=== PATIENT | female | born 1945 | race Caucasian/White ===

== ENCOUNTER → 2017-07-23 10:30 | Outpatient (CLI) | payer MEDICARE, SELFPAY ==
[2017-07-23 11:16] LABS: Basophils Percent Auto 0.6 % (0-2); Eosinophils Percent Auto 2.4 % (2-4); Lymphocytes Percent Auto 15.7 % (25-40); Mean Corpuscular HGB Conc 31.8 % (30-36); Mean Corpuscular Hemoglobin 22.7 PG (26-34); Mean Corpuscular Volume 71.4 fL (80-100); Monocytes Percent Auto 6.2 % (3-14); Neutrophils Absolute Auto 5100 /uL (3000-5900); Neutrophils Percent Auto 75.1 % (50-75); Platelet Count 527 X10^3/uL (150-400); Red Blood Cell Count 6.17 X10^6/uL (4.0-5.2); Red Cell Distribution Width 18.6 % (11.6-14.8); White Blood Cell Count 6.8 X10^3/uL (4.5-11.0)
[2017-07-23 11:17] LABS: Add Manual Diff / Slide Review SLIDE REVIEW
[2017-07-23 11:47] LABS: Anisocytosis 1+
--- NOTE | 2017-07-23 15:53 | PC.NURSE ---
Addendum entered by Linda Perkins R.N. 07/24/17 08:15: Labs reviewed by PAOLA.No changes to continue twice weekly Hydrea 500 mg twice weekly.CBC in 2 weeks .Pt notified Original Note: Patient's Hct 44.0 today, PLT 527K. No phlebotomy needed. Results given to Meli GUEVARA for eval and possible Hydrea adjustment.
== END ==
PROVIDERS: PCP Internal Medicine; Visit Provider Nurse Practitioner Gerontology
DX: D47.3 Essential (hemorrhagic) thrombocythemia (principal)
CPT/HCPCS: 36415; 85025

== ENCOUNTER → 2017-08-04 10:59 | Outpatient (CLI) | payer MEDICARE, SELFPAY ==
[2017-08-04 11:25] LABS: Add Manual Diff / Slide Review NO; Basophils Percent Auto 0.7 % (0-2); Eosinophils Percent Auto 2.7 % (2-4); Hematocrit 45.9 % (36-46); Hemoglobin 14.7 g/dL (12.0-16.0); Lymphocytes Percent Auto 14.7 % (25-40); Mean Corpuscular Hemoglobin 22.6 PG (26-34); Mean Corpuscular Volume 70.6 fL (80-100); Monocytes Percent Auto 10.2 % (3-14); Neutrophils Absolute Auto 4800 /uL (3000-5900); Neutrophils Percent Auto 71.7 % (50-75); Platelet Count 477 X10^3/uL (150-400); Red Blood Cell Count 6.49 X10^6/uL (4.0-5.2); Red Cell Distribution Width 18.3 % (11.6-14.8); White Blood Cell Count 6.7 X10^3/uL (4.5-11.0)
== END ==
PROVIDERS: PCP Internal Medicine; Visit Provider Nurse Practitioner Gerontology
DX: D47.3 Essential (hemorrhagic) thrombocythemia (principal)
CPT/HCPCS: 36415; 85025

== ENCOUNTER → 2017-09-18 13:02 | Outpatient (CLI) | payer MEDICARE, SELFPAY ==
[2017-09-18 13:22] LABS: Hematocrit 48.7 % (36-46); Hemoglobin 15.5 g/dL (12.0-16.0); Mean Corpuscular HGB Conc 31.9 % (30-36); Mean Corpuscular Hemoglobin 23.5 PG (26-34); Mean Corpuscular Volume 73.5 fL (80-100); Platelet Count 546 X10^3/uL (150-400); Red Cell Distribution Width 19.2 % (11.6-14.8); White Blood Cell Count 8.6 X10^3/uL (4.5-11.0)
[2017-09-18 13:25] LABS: Red Blood Cell Count 6.63 X10^6/uL (4.0-5.2)
[2017-09-18 13:43] LABS: Neutrophils Absolute Manual 6966 /uL (3000-5900); Total Cells Counted 100
[2017-09-18 13:44] LABS: Ovalocytes 1+
[2017-09-18 13:45] LABS: Anisocytosis 1+; Microcytosis 1+
--- NOTE | 2017-09-18 15:21 | PC.NURSE ---
PT BECAME VERY UPSET WHEN TOLD SHE WOULD NEED TO GO FOR A THERAPEUTIC PHLEBOTOMY FOR A CRIT OF 48.7 SHE REQUIRED A LOT OF CONSOLING AND DID NOT WANT TO SCHD ONE UNTIL SHE NEW WHAT HER HUSBANDS SCHD WOULD BE. FINALLY AFTER SEVERAL CALLS HER IT WAS DETERMINED HER WAS AVAIL FOR FRIDAY (09/19) AND THE PROCEDURE WAS SCHD FOR 10AM. PT NOTIFIED VIA PHONE
== END ==
PROVIDERS: PCP Internal Medicine; Visit Provider Nurse Practitioner Gerontology
DX: D47.3 Essential (hemorrhagic) thrombocythemia (principal)
CPT/HCPCS: 36415; 85025

== ENCOUNTER → 2017-09-19 09:47 | Outpatient (CLI) | payer MEDICARE, SELFPAY ==
[2017-09-19 12:25] LABS: 585 Gram Check PASS; Amount Collected in g 585; Dizziness NO; Postdiastolic BP 89; Postsystolic BP 149; Prediastolic 89; Presystolic 155; Pulse 72; Site of phlebotomy R AC; Swelling NO; Therapeutic Phleb Comment NO COMMENT; Zero Check Sebra Scale PASS
== END ==
PROVIDERS: PCP Internal Medicine; Visit Provider Nurse Practitioner Gerontology
DX: D47.3 Essential (hemorrhagic) thrombocythemia (principal)
CPT/HCPCS: 99195

== ENCOUNTER → 2017-10-16 10:53 | Outpatient (CLI) | payer MEDICARE, SELFPAY ==
[2017-10-16 11:14] LABS: Basophils Percent Auto 0.3 % (0-2); Eosinophils Percent Auto 2.4 % (2-4); Hematocrit 43.5 % (36-46); Hemoglobin 14.3 g/dL (12.0-16.0); Lymphocytes Percent Auto 17.6 % (25-40); Mean Corpuscular HGB Conc 32.8 % (30-36); Mean Corpuscular Hemoglobin 24.2 PG (26-34); Monocytes Percent Auto 7.1 % (3-14); Neutrophils Absolute Auto 4300 /uL (3000-5900); Neutrophils Percent Auto 72.6 % (50-75); Platelet Count 494 X10^3/uL (150-400); Red Blood Cell Count 5.88 X10^6/uL (4.0-5.2); Red Cell Distribution Width 18.1 % (11.6-14.8)
[2017-10-16 11:15] LABS: Add Manual Diff / Slide Review SLIDE REVIEW
[2017-10-16 12:24] LABS: Anisocytosis 1+; Ovalocytes 1+
[2017-10-16 12:25] LABS: Microcytosis 1+
--- NOTE | 2018-01-19 14:36 | ONC.NAV ---
Description: Transfer Referral Order Activity: Faxed pt's referral to her new Oncology provider, per her request.
== END ==
PROVIDERS: PCP Internal Medicine; Visit Provider Nurse Practitioner Gerontology
DX: D47.3 Essential (hemorrhagic) thrombocythemia (principal)
CPT/HCPCS: 36415; 85025

== ENCOUNTER → 2017-11-13 12:28 | Outpatient (CLI) | payer MEDICARE, SELFPAY ==
[2017-11-13 13:00] LABS: Add Manual Diff / Slide Review NO; Basophils Percent Auto 0.5 % (0-2); Eosinophils Percent Auto 2.2 % (2-4); Hematocrit 42.8 % (36-46); Hemoglobin 13.8 g/dL (12.0-16.0); Lymphocytes Percent Auto 16.5 % (25-40); Mean Corpuscular HGB Conc 32.2 % (30-36); Mean Corpuscular Hemoglobin 23.4 PG (26-34); Mean Corpuscular Volume 72.8 fL (80-100); Monocytes Percent Auto 7.8 % (3-14); Neutrophils Absolute Auto 5200 /uL (3000-5900); Platelet Count 514 X10^3/uL (150-400); Red Blood Cell Count 5.88 X10^6/uL (4.0-5.2); Red Cell Distribution Width 17.2 % (11.6-14.8); White Blood Cell Count 7.1 X10^3/uL (4.5-11.0)
== END ==
PROVIDERS: PCP Internal Medicine; Visit Provider Nurse Practitioner Gerontology
DX: D47.3 Essential (hemorrhagic) thrombocythemia (principal)
CPT/HCPCS: 36415; 85025

== ENCOUNTER → 2017-12-04 12:07 | Outpatient (CLI) | payer MEDICARE, SELFPAY ==
[2017-12-04 12:48] LABS: Add Manual Diff / Slide Review NO; Alanine Aminotransferase 24 IU/L (9-52); Albumin 4.2 g/dL (3.5-5.0); Albumin Globulin Ratio 1.3 (1.0-2.8); Alkaline Phosphatase 66 U/L (38-126); Aspartate Aminotransferase 39 IU/L (14-36); BUN Creatinine Ratio 14.3 (6-22); Basophils Percent Auto 0.6 % (0-2); Bilirubin Total 0.4 mg/dL (0.2-1.3); Blood Urea Nitrogen 10 mg/dL (7-17); Calcium 9.3 mg/dL (8.4-10.2); Carbon Dioxide 32 mmol/L (22-32); Chloride 103 mmol/L (98-107); Eosinophils Percent Auto 2.4 % (2-4); Estimated Glomerular Filt Rate > 60.0 mL/min (>60); Globulin 3.2 g/dL (1.7-4.1); Glucose 57 mg/dL (80-110); HEMOLYSIS < 15 (0-50); Hematocrit 45.4 % (36-46); Hemoglobin 14.6 g/dL (12.0-16.0); Lymphocytes Percent Auto 16.3 % (25-40); Mean Corpuscular HGB Conc 32.2 % (30-36); Mean Corpuscular Hemoglobin 23.3 PG (26-34); Mean Corpuscular Volume 72.3 fL (80-100); Monocytes Percent Auto 9.8 % (3-14); Neutrophils Absolute Auto 5200 /uL (3000-5900); Neutrophils Percent Auto 70.9 % (50-75); Platelet Count 556 X10^3/uL (150-400); Potassium 4.3 mmol/L (3.4-5.1); Red Blood Cell Count 6.28 X10^6/uL (4.0-5.2); Red Cell Distribution Width 16.6 % (11.6-14.8); Sodium 144 mmol/L (137-145); Total Protein 7.4 g/dL (6.3-8.2); White Blood Cell Count 7.3 X10^3/uL (4.5-11.0)
== END ==
PROVIDERS: PCP Internal Medicine; Visit Provider Nurse Practitioner Gerontology
DX: D47.3 Essential (hemorrhagic) thrombocythemia (principal)
CPT/HCPCS: 36415; 80053; 85025

== ENCOUNTER → 2017-12-22 11:02 | Outpatient (CLI) | payer MEDICARE, SELFPAY ==
[2017-12-22 11:22] LABS: Add Manual Diff / Slide Review NO; Basophils Percent Auto 0.4 % (0-2); Eosinophils Percent Auto 2.5 % (2-4); Hematocrit 45.4 % (36-46); Hemoglobin 14.5 g/dL (12.0-16.0); Lymphocytes Percent Auto 15.9 % (25-40); Mean Corpuscular Hemoglobin 23.3 PG (26-34); Mean Corpuscular Volume 72.7 fL (80-100); Monocytes Percent Auto 7.7 % (3-14); Neutrophils Absolute Auto 4600 /uL (3000-5900); Neutrophils Percent Auto 73.5 % (50-75); Platelet Count 519 X10^3/uL (150-400); Red Blood Cell Count 6.24 X10^6/uL (4.0-5.2); Red Cell Distribution Width 16.8 % (11.6-14.8); White Blood Cell Count 6.2 X10^3/uL (4.5-11.0)
[2017-12-22 11:44] LABS: Alanine Aminotransferase 31 IU/L (9-52); Albumin 4.2 g/dL (3.5-5.0); Albumin Globulin Ratio 1.3 (1.0-2.8); Alkaline Phosphatase 76 U/L (38-126); Aspartate Aminotransferase 33 IU/L (14-36); Bilirubin Total 0.5 mg/dL (0.2-1.3); Blood Urea Nitrogen 14 mg/dL (7-17); Calcium 9.2 mg/dL (8.4-10.2); Carbon Dioxide 30 mmol/L (22-32); Chloride 103 mmol/L (98-107); Estimated Glomerular Filt Rate > 60.0 mL/min (>60); Globulin 3.3 g/dL (1.7-4.1); Glucose 91 mg/dL (80-110); HEMOLYSIS < 15 (0-50); Potassium 3.8 mmol/L (3.4-5.1); Sodium 146 mmol/L (137-145); Total Protein 7.5 g/dL (6.3-8.2)
[2017-12-22 12:03] LABS: HEMOLYSIS < 15 (0-50); Iron 26 ug/dL (37-170)
[2017-12-22 12:13] LABS: Percent Iron Saturation 7 % (15-50); Total Iron Binding Capacity 388 ug/dL (265-497); Transferrin 322 mg/dL (206-381)
[2017-12-22 12:18] LABS: Ferritin 6.2 ng/mL (11.1-264)
== END ==
PROVIDERS: PCP Internal Medicine; Visit Provider Internal Medicine Hematology & Oncology
DX: D47.3 Essential (hemorrhagic) thrombocythemia (principal)
CPT/HCPCS: 36415; 80053; 82728; 83540; 83550; 85025